=== PATIENT | female | born 1965 | race Caucasian/White ===

== ENCOUNTER 2016-03-17 11:45 | Emergency (ER) | payer BC ==
[2016-03-17 12:20] VITALS: O2SAT 96
--- NOTE | 2016-03-17 13:05 | UCPHY ---
H & P Patient Type: New Smoking Status: Current every day smoker Time Seen by Provider: 03/17/16 12:38 HPI/ROS: CHIEF COMPLAINT: Cough, abdominal pain HISTORY OF PRESENT ILLNESS: 50-year-old female presents to Urgent Care with cough the last few days. She denies feeling shortness of breath or chest pain. He has no fevers or chills. She has had a cough she states for several weeks although acutely worse in the last few days. She also is having some left lower quadrant abdominal pain. She has noticed this over last couple of days and thinks this is from the cough. She has a history of chronic diarrhea. No vomiting. No recent travel. She has a chronic smoker. REVIEW OF SYSTEMS: Constitutional: No fever, no chills. Eyes: No double or blurry vision. ENT: No sore throat. Respiratory: Cough. no shortness of breath. Cardiac: No chest pain. Gastrointestinal: Abdominal pain as above. No vomiting or diarrhea. Genitourinary: No dysuria. Musculoskeletal: No neck or back pain. Skin: No rashes. Neurological: No headache. (Clover Vallejo) Past Medical/Surgical History: Chronic diarrhea, partial hysterectomy 2006 (Clover Vallejo) Social History: (Clover Vallejo) Physical Exam: General Appearance: Alert, no distress. 37.0, 96% on room air. Eyes: Pupils equal and round. Extraocular motions are all intact. ENT: Mouth: Mucous membranes moist. Respiratory: No wheezing, rhonchi, or rales, lungs are clear to auscultation. Cardiovascular: Regular rate and rhythm. Gastrointestinal: Abdomen is soft. Tenderness with palpation in the suprapubic area as well as just to the left of midline in the lower abdomen. No palpable crepitus or other bony abnormality. No palpable mass. No obvious hernia. Neurological: Alert and oriented x 3, cranial nerves II through XII grossly intact Skin: Warm and dry, no rashes. Musculoskeletal: Nontender to palpate along the cervical, thoracic or lumbar spine. Neck is supple. Extremities: Full range of motion and no peripheral edema. Psychiatric: Patient is oriented X 3, there is no agitation. (Clover Vallejo) Constitutional: Initial Vital Signs Temperature (C) 37.0 C 03/17/16 12:17 Heart Rate 71 03/17/16 12:17 Respiratory Rate 18 03/17/16 12:17 Blood Pressure 165/91 H 03/17/16 12:17 O2 Sat (%) 96 03/17/16 12:17 O2 Delivery Mode Room Air Allergies/Adverse Reactions: erythromycin base [Erythromycin Base] Allergy (Verified 03/17/16 12:42) Home Medications: Medication Instructions Recorded Sertraline HCl [Zoloft 100mg (RX)] 09/16/12 Albuterol [Proventil Inhaler HFA 1 - 2 puffs IH Q4PRN PRN #1 mdi 03/17/16 (*)] Azithromycin [Zithromax tab 250 mg] 250 mg PO DAILY #6 tab 03/17/16 Guaifenesin/Hydrocodone Bit 5 - 10 ml PO Q4-6PRN PRN #240 ml 03/17/16 [Hydrocodone-Guaifenesin Syrup] Medical Decision Making ED Course/Re-evaluation: 50-year-old female presents with chronic cough. Clinically I think she has bronchitis. She will be treated with Zithromax and albuterol inhaler. She was also given including cough syrup to help suppress cough. The patient has left lower quadrant abdominal pain. She declined ultrasound or any other imaging studies. Patient has a scheduled appointment with her primary care provider on Tuesday which she will keep. I explained to the patient that it could be a small hernia. I do not appreciate any incarcerated hernia. The patient has a history of chronic diarrhea for months. She has a scheduled appointment with her primary care doctor on Tuesday and does not want any further workup with her chronic diarrhea. She denies blood or melena. (Clover Vallejo) Differential Diagnosis: Including but not limited to bronchitis, pneumonia, influenza, viral upper respiratory infection, hernia, diverticulitis, ovarian mass, ovarian cyst, ovarian torsion (Clover Vallejo) Other Provider: The patient was evaluated and managed by the Physician Professional Services Consultant. My co- signature indicates that I have reviewed this chart and I agree with the findings and plan of care as documented. I am the secondary supervising physician. (Brittany Plata) Departure - Departure Disposition: Home, Routine, Self-Care Clinical Impression: Bronchitis, Abdominal pain Condition: Good Instructions: Acute Bronchitis (ED), How to Stop Smoking (ED), Acute Abdominal Pain (ED) Additional Instructions: Albuterol inhaler 2 puffs every 4 hours for one week and then as needed. Zithromax as directed for 5 days. Try to quit smoking Return if you feel short of breath, if he developed fever, or if you feel worse in any way. Please follow up with her primary care provider as scheduled on Tuesday regarding your abdominal pain. You declined any imaging or further evaluation of your abdominal pain. Please return if you change your mind or if you develop worsening pain. Referrals: ELIA SCHNEIDER [Primary Care Provider] - As per Instructions (Keep scheduled appointment on Tuesday) Prescriptions: Guaifenesin/Hydrocodone Bit [Hydrocodone-Guaifenesin Syrup] 5 - 10 ml PO Q4- 6PRN PRN #240 ml PRN Reason: For Cough Albuterol [Proventil Inhaler HFA (*)] 1 - 2 puffs IH Q4PRN PRN #1 mdi PRN Reason: Short Of Breath/Dyspnea Azithromycin [Zithromax tab 250 mg] 250 mg PO DAILY #6 tab - PQRS PQRS Measurement: Not applicable (Clover Vallejo
[2016-03-17 13:10] VITALS: BP 146/71; PULSE 82; RESP 20; TEMP 98.2
== END 2016-03-17 13:16 | disposition home or self-care (01) ==
LOC: CED 11:45
DX: J20.9 Acute bronchitis, unspecified (principal); R10.9 Unspecified abdominal pain; Z72.0 Tobacco use
CPT/HCPCS: G0463-PO